=== PATIENT | female | born 1970 | race Two or more races ===

== ENCOUNTER 2017-06-29 20:24 | Inpatient (IN) | payer MEDICAID ==
[~2017-06-29] VITALS: Ht 165.1 cm; Wt 118.0 kg
[2017-06-29 22:27] LABS: HEMATOCRIT 40.2 % (34.6-47.8); HEMOGLOBIN 13.9 g/dL (11.7-16.4); WHITE BLOOD COUNT 8.7 x10^3/uL (3.4-10)
[2017-06-29 22:40] LABS: BLOOD UREA NITROGEN 12 mg/dL (7-18)
[2017-06-29] MEDS ORDERED: KETOROLAC 30 MG/1 ML ONE (22:45)
[2017-06-29 22:48] LABS: IS PT STATUS REG ER OR PRE ER? YES
[2017-06-29] MEDS ORDERED: KETOROLAC 30 MG/1 ML IM ONE (23:00)
[2017-06-29] MEDS ORDERED: PROMETHAZINE 25 MG/ML, 1ML IM ONE (23:00)
[2017-06-29] MEDS ORDERED: OMNIPAQUE 350 MG/ML, 100ML BOTTLE ONE (23:47)
[2017-06-30 01:30] VITALS: BP 144/85
[2017-06-30] MEDS ORDERED: BISACODYL 10 MG SUPP PR PRN (03:00)
[2017-06-30] MEDS ORDERED: Enoxaparin 1 mg/kg protocol SQ SCH (03:00)
[2017-06-30] MEDS ORDERED: ACETAMINOPHEN 325 MG TABLET PO PRN (03:00)
[2017-06-30] MEDS ORDERED: DOCUSATE 100 MG CAPSULE PO PRN (03:00)
[2017-06-30] MEDS ORDERED: ONDANSETRON 2MG/ML, 2ML IVPush PRN (03:00)
[2017-06-30] MEDS ORDERED: ONDANSETRON ODT 4 MG PO PRN (03:00)
[2017-06-30] MEDS ORDERED: NITROGLYCERIN 0.4 MG BOTTLE (25 TABS) SL PRN (03:00)
[2017-06-30] MEDS ORDERED: morphine SULFATE 10 MG/ML, 1ML IVPush PRN (03:00)
[2017-06-30 03:44] LABS: IS PT STATUS REG ER OR PRE ER? NO
[2017-06-30 03:54] LABS: ASPARTATE AMINO TRANSFERASE 25 U/L (15-37); BLOOD UREA NITROGEN 13 mg/dL (7-18)
[2017-06-30] MEDS: SODIUM CHLORIDE 0.9% 1,000 ML IV SCH ×2 (04:00→12:00)
[2017-06-30] MEDS: ENOXAPARIN 120MG/0.8ML SQ SCH ×2 (04:01→16:00)
[2017-06-30 04:39] LABS: ABG COLLECTION SITE LEFT RADIAL; COLLATERAL CIRCULATION TESTING NORMAL
[2017-06-30] MEDS ORDERED: ASPIRIN 325 MG TABLET EC PO SCH (06:00)
[2017-06-30 07:10] VITALS: BP 119/78
[2017-06-30] MEDS ORDERED: SENNA/DOCUSATE TABLET PO SCH (09:00)
[2017-06-30 09:04] LABS: IS PT STATUS REG ER OR PRE ER? NO
[2017-06-30] MEDS ORDERED: REGADENOSON 0.4 MG/5 ML SYRINGE ONE (13:20)
[2017-06-30] MEDS ORDERED: KETOROLAC 30 MG/1 ML IVPush ONE ×2 (16:00)
== END 2017-06-30 18:28 | disposition home or self-care (01) | DRG 313 ==
LOC: ED 23:59 → 5SO 06-30 00:31
PROVIDERS: ADMIT Surgery; ATTEND Surgery
DX: R07.89 Other chest pain (principal); I27.20 Pulmonary hypertension, unspecified; D18.00 Hemangioma unspecified site; I10 Essential (primary) hypertension; I34.0 Nonrheumatic mitral (valve) insufficiency; R51 Headache; Z79.82 Long term (current) use of aspirin
CPT/HCPCS: 36415; 36600; 70450; 71020; 71275; 78452; 80048; 80053; 80061; 81003; 82040; 82803; 83036; 84100; 84443; 84484; 85025; 85379; 93005; 93017; 93306; 96374; J1650; J1885; J2785; Q9967; A9502; C9898; J7030

== ENCOUNTER 2017-07-21 01:36 | Emergency (ER) | payer MEDICAID ==
[~2017-07-21] VITALS: Ht 165.1 cm; Wt 109.0 kg
[2017-07-21 04:25] LABS: RAPID INFLUENZA A Negative (Negative); RAPID INFLUENZA B Negative (Negative)
[2017-07-21 05:38] VITALS: BP 114/57
== END 2017-07-21 06:02 | disposition home or self-care (01) ==
LOC: ED 05:56
DX: J02.8 Acute pharyngitis due to other specified organisms (principal); B97.89 Other viral agents as the cause of diseases classified elsewhere
CPT/HCPCS: 71046; 87400; 93005; 99285